=== PATIENT | female | born 1980 | race Asian ===

== ENCOUNTER 2018-08-02 11:23 | Observation (INO) | payer OTHER ==
[~2018-08-02 11:23] MED LIST: GLYB-226 PO; PNV91TAB3 PO
[2018-08-02 12:11] LABS: APPEARANCE,URINE Cloudy (CLEAR); BILIRUBIN,URINE Negative (NEGATIVE); COLOR,URINE Yellow (YELLOW); GLUCOSE, URINE (UA) Negative (NEGATIVE); KETONES,URINE Negative (NEGATIVE); LEUKOCYTE ESTERASE ,URINE Moderate (NEGATIVE); NITRATE,URINE Negative (NEGATIVE); OCCULT BLOOD,URINE Nonhemolyzed Trace (NEGATIVE); PROTEIN,URINE POS 1+ (NEGATIVE)
[2018-08-02 12:31] LABS: BACTERIA,URINE Few /HPF (None Seen); CALCIUM OXALATE CRYSTALS,UR Moderate /LPF (None Seen); SQUAMOUS EPITHELIAL CELL,UR Moderate /HPF (0-2)
[2018-08-02 12:32] LABS: YEAST,URINE BUDDING Few /HPF (None Seen)
== END 2018-08-02 14:30 | disposition home or self-care (01) ==
LOC: LDH 11:23
PROVIDERS: ADMIT Obstetrics & Gynecology; ATTEND Obstetrics & Gynecology
DX: O36.8130 Decreased fetal movements, third trimester, not applicable or unspecified (principal); O09.523 Supervision of elderly multigravida, third trimester; Z3A.38 38 weeks gestation of pregnancy
CPT/HCPCS: 59025; 76819; 81001; G0378 ×4

== ENCOUNTER 2018-08-07 05:35 | Inpatient (IN) | payer MEDICAID, OTHER ==
[2018-08-06 12:58] LABS: MEAN CORPUSCULAR HEMOGLOBIN 26.7 pg (27.0-33.0); MEAN CORPUSCULAR HGB CONC 32.2 g/dL (32.0-36.0); MEAN CORPUSCULAR VOLUME 82.9 fL (79-99); PLATELET COUNT (AUTO) 322 K/uL (130-400); RED BLOOD CELL COUNT(AUTO) 4.34 MIL/uL (4.00-5.50); RED CELL DISTRIBUTION WIDTH 15.8 % (11.0-15.5)
[~2018-08-07] VITALS: Ht 162.6 cm; Wt 101.6 kg
[2018-08-07] MEDS ORDERED: CEFAZOLIN SODIUM 1 GM VIAL IVP PRN (07:30)
[2018-08-07] MEDS ORDERED: LACTATED RINGERS 1000ML 1,000 ML IV SCH (07:30)
[2018-08-07 08:22] LABS: HEPATITIS Bs ANTIGEN SCREEN P Negative (Negative)
[2018-08-07] MEDS ORDERED: DURAMORPH PF1 MG/ML 10ML AMP IV ONE (10:27)
[2018-08-07] MEDS ORDERED: CEFAZOLIN SODIUM 1 GM VIAL IVP ONE (10:37)
[2018-08-07] MEDS ORDERED: ONDANSETRON HCL 4 MG/2 ML VIAL ONE (10:56)
[2018-08-07] MEDS ORDERED: SENSORCAINE/DEXT/PF 0.75% 2ML AMP IJ ONE (11:00)
[2018-08-07] MEDS ORDERED: MIDAZOLAM HCL 1 MG/ML 2ML VIAL ONE (11:03)
[2018-08-07] MEDS ORDERED: OXYTOCIN-LR 20 UNITS/1000 ML 1,000 ML IV PRN (11:26)
[2018-08-07] MEDS ORDERED: MEPERIDINE-PF 75 MG/ML SYG IM PRN (11:30)
[2018-08-07] MEDS ORDERED: SODIUM CHLORIDE 0.9% 10 ML VIAL IVP PRN (11:30)
[2018-08-07] MEDS ORDERED: PROMETHAZINE HCL 25 MG/ML 1ML AMPULE IM PRN ×2 (11:30→16:15)
[2018-08-07] MEDS ORDERED: OXYTOCIN 10 USP UNITS/ML ONE (12:54)
[2018-08-07] MEDS ORDERED: LACTATED RINGERS 1000ML 1,000 ML IV ONE (12:54)
[2018-08-07] MEDS ORDERED: CALDOLOR 800MG+NS 250ML 250 ML IV ONE (12:55)
[2018-08-07] MEDS ORDERED: HYDROCODONE/ACETAMINOPHEN 5/325 MG TAB ONE (14:36)
[2018-08-07] MEDS ORDERED: CALC-1174 PO (14:51)
[2018-08-07 15:44] VITALS: BP 95/57
[2018-08-07] MEDS ORDERED: HYDROCODONE/ACETAMINOPHEN 5/325 MG TAB PO PRN (16:15)
[2018-08-07] MEDS ORDERED: EPHEDRINE SULFATE 50 MG/ML AMPULE IVP PRN (16:15)
[2018-08-07] MEDS ORDERED: METOCLOPRAMIDE 10 MG/2 ML VIAL IVP PRN (16:15)
[2018-08-07] MEDS ORDERED: ONDANSETRON HCL 4 MG/2 ML VIAL IVP PRN ×2 (16:15)
[2018-08-07] MEDS ORDERED: ONDANSETRON HCL 4 MG/2 ML 8 MG in SODIUM CHLORIDE 0.9% 50 ML IVP NR (16:15)
[2018-08-07] MEDS ORDERED: MORPHINE SULFATE 2 MG/ML 1ML SYG IVP PRN (16:15)
[2018-08-07] MEDS ORDERED: NALOXONE HCL 0.4 MG/1 ML ML IVP PRN ×2 (16:15)
[2018-08-07 19:52] VITALS: BP 101/70
[2018-08-07] MEDS: CALDOLOR 800MG+NS 250ML 250 ML IV SCH (20:23)
[2018-08-07] MEDS: DiphenhydrAMINE HCL 50 MG/ML VIAL IVP PRN (20:36)
[2018-08-07] MEDS: DEXTROSE 5 %-0.45 % NACL 1,000 ML IV PRN (22:56)
[2018-08-08] VITALS (7 sets, daily range): BP systolic 97–131; BP diastolic 40–85
[2018-08-08] MEDS: CALDOLOR 800MG+NS 250ML 250 ML IV SCH (04:02)
[2018-08-08] MEDS: HYDROCODONE/ACETAMINOPHEN 5/325 MG TAB PO PRN (06:24)
[2018-08-08 06:27] LABS: HEMATOCRIT 31.3 % (36-48); MEAN CORPUSCULAR HEMOGLOBIN 26.4 pg (27.0-33.0); MEAN CORPUSCULAR HGB CONC 31.7 g/dL (32.0-36.0); MEAN CORPUSCULAR VOLUME 83.2 fL (79-99); NUCLEATED RED BLOOD CELLS 0.1 % (0.0-0.19); PLATELET COUNT (AUTO) 266 K/uL (130-400); RED BLOOD CELL COUNT(AUTO) 3.76 MIL/uL (4.00-5.50); RED CELL DISTRIBUTION WIDTH 15.8 % (11.0-15.5)
[2018-08-08] MEDS: DEXTROSE 5 %-0.45 % NACL 1,000 ML IV PRN (07:33)
[2018-08-08] MEDS ORDERED: DIPH,PERTUSS(ACELL),TET VAC/PF 0.5 ML VIAL IM SCH (07:45)
[2018-08-08] MEDS: SIMETHICONE 80 MG TAB.CHEW PO PRN ×4 (09:01→21:09)
[2018-08-08] MEDS: DOCUSATE SODIUM 100 MG CAP PO SCH ×2 (09:01→21:09)
[2018-08-08] MEDS: ACETAMINOPHEN-CODEINE 300/30MG TAB PO PRN ×2 (09:59→16:49)
[2018-08-08] MEDS: IBUPROFEN 800 MG TAB PO SCH ×2 (12:18→19:47)
[2018-08-08] MEDS ORDERED: BISACODYL 10 MG SUPP.RECT RC PRN (16:30)
[2018-08-08] MEDS ORDERED: LIDOCAINE 5% TOPICAL PATCH TP SCH (18:00)
[2018-08-08] MEDS: DiphenhydrAMINE HCL 50 MG/ML VIAL IVP PRN (22:48)
[2018-08-09] MEDS: HYDROCODONE/ACETAMINOPHEN 5/325 MG TAB PO PRN (01:43)
[2018-08-09] MEDS: IBUPROFEN 800 MG TAB PO SCH ×2 (03:36→12:28)
[2018-08-09 04:07] VITALS: BP 133/79
[2018-08-09] MEDS: ACETAMINOPHEN-CODEINE 300/30MG TAB PO PRN (06:04)
[2018-08-09 07:33] VITALS: BP 138/80
[2018-08-09] MEDS: SIMETHICONE 80 MG TAB.CHEW PO PRN (08:43)
[2018-08-09] MEDS: DOCUSATE SODIUM 100 MG CAP PO SCH (08:43)
[2018-08-09] MEDS ORDERED: LIDOCAINE 5% TOPICAL PATCH TP SCH (09:00)
[2018-08-09 11:54] VITALS: BP 142/85
== END 2018-08-09 14:10 | disposition home or self-care (01) | DRG 765 ==
LOC: LDH 05:35 → WSH 14:03
PROVIDERS: ADMIT Obstetrics & Gynecology; ATTEND Obstetrics & Gynecology
PROC: 3E0234Z Introduction of Serum, Toxoid and Vaccine into Muscle, Percutaneous Approach (ICD-10-PCS; 2018-08-07)
PROC: 10D00Z1 Extraction of Products of Conception, Low, Open Approach (ICD-10-PCS; principal; 2018-08-07 08:50)
DX: O34.211 Maternal care for low transverse scar from previous cesarean delivery (principal); O40.3XX0 Polyhydramnios, third trimester, not applicable or unspecified; N85.8 Other specified noninflammatory disorders of uterus; Z3A.39 39 weeks gestation of pregnancy; Z37.0 Single live birth; O09.513 Supervision of elderly primigravida, third trimester; O99.824 Streptococcus B carrier state complicating childbirth; Z23 Encounter for immunization
CPT/HCPCS: 36415; 59510; 85027; 86592; 86850; 86900; 86901; 87340; 90715; A4344; A4450; A4606; J0690; J1200; J1741; J2250; J2274; J2405; J2590; J3490; J7120; Q2038